=== PATIENT | male | born 1995 ===

== ENCOUNTER 2019-12-29 09:01 | Outpatient (CLI) | payer OTHER ==
--- NOTE | 2019-12-29 10:48 | RAD ---
LUMBAR SPINE 3 VIEWS: Date: 12/29/2019 HISTORY: Low back pain. FINDINGS/IMPRESSION: Lateral views of the lumbar spine in neutral, flexion, and extension demonstrate no evidence of compr ession fracture or change in alignment on flexion or extension. POS: [facility]
== END 2019-12-29 09:02 | disposition home or self-care (01) ==
LOC: RAD 09:01
PROVIDERS: ATTEND Nurse Practitioner Family
DX: M54.5 Low back pain (principal)
CPT/HCPCS: 72100

== ENCOUNTER 2020-01-14 12:22 | Outpatient (CLI) | payer OTHER ==
--- NOTE | 2020-01-14 14:25 | MRI ---
MRI OF LUMBAR SPINE WITHOUT CONTRAST: INDICATION: Lumbar pain. FINDINGS: Lumbar vertebrae maintain normal height and alignment. There is loss of disk space and loss of T2 si gnal at the L5-S1 disk space. The other disk spaces are preserved. Findings at each level are described. At L1-2, no significant disk bulge. No central canal or foraminal stenosis. At L2-3, minimal disk bulge. No central canal or foraminal stenosis. At L3-4, there is a mild diffuse disk bulge flattening the thecal sac. Mild facet arthrosis and hype rtrophy. There is also posterior epidural fat. These changes do result in mild central canal stenos is. No foraminal stenosis. At L4-5, disk bulge and small central protrusion indents the anterior thecal sac. Mild facet arthros is and hypertrophy. Posterior epidural fat. These changes result in mild central canal stenosis. N o foraminal stenosis. At L5-S1, there is an annular fissure and a small protrusion paracentrally to the left which flattens the anterior thecal sac on the left and also displaces the traversing left S1 nerve root. Mild cent ral canal stenosis. No significant foraminal stenosis. IMPRESSION: 1. Small disk protrusion to the left at L5-S1 displacing the traversing left S1 nerve root. 2. Disk bulge at L3-4 and L4-5 as described above. POS: [facility]
== END 2020-01-14 12:23 | disposition home or self-care (01) ==
LOC: BICMRI 12:22
PROVIDERS: ATTEND Nurse Practitioner Family
DX: M51.16 Intervertebral disc disorders with radiculopathy, lumbar region (principal); M51.27 Other intervertebral disc displacement, lumbosacral region
CPT/HCPCS: 72148